=== PATIENT | female | born 1935 | race Caucasian/White ===

== ENCOUNTER 2016-12-28 09:33 | Outpatient (CLI) | payer MEDICARE, OTHER ==
[2016-12-28 17:45] LABS: #Basophils 0.1 thou/uL (0.0-0.2); #Eosinphils 0.2 thou/uL (0.0-0.7); #Lymphocytes 2.6 thou/uL (1.20-3.40); #Monocytes 0.5 thou/uL (0.11-0.59); #Neutrophils 4.8 thou/uL (1.40-6.50); %Basophils 1.1 % (0.0-1.0); %Eosinophils 2.7 % (0.0-10.0); %Lymphocytes 32.2 % (21.0-51.0); Hemoglobin 13.8 g/dL (12.0-16.0); Mean Corpuscular HGB CONC 31.2 g/dL (32.0-36.0); Mean Corpuscular Hemoglobin 29.2 pg (27.0-31.0); Mean Corpuscular Volume 93.6 fl (81.0-99.0); Mean Platelet Volume 7.5 fL (7.4-10.4); Platelet Count 211 thou/uL (130-400); RBC Distribution Width 12.3 % (11.5-14.5); Red Blood Cell (RBC) Count 4.72 mill/uL (4.20-5.40); White Blood Cell (WBC) Count 8.2 thou/uL (4.8-10.8)
[2016-12-28 19:09] LABS: Bilirubin Negative (Negative); Blood, Urine Trace (Negative); Clarity Slightly Cloudy (Clear); Glucose, Urine (Dipstick) Negative (Negative); Leukocyte Negative (Negative); Nitrite Negative (Negative); Protein, Urine (Dipstick) Trace mg/dL (Neg-Trace); Specific Gravity, Urine 1.025 (1.005-1.030); Urobilinogen 0.2 mg/dL (0.2-1.0); pH, Urine 5.5 (5.0-9.0)
[2016-12-28 19:12] LABS: RBC/HPF 0-3 HPF (0-3); Squamous Epithelial 0-3 HPF (0-3); WBC/HPF 0-3 HPF (0-3)
[2016-12-28 19:25] LABS: ALT (SGPT) 14 U/L (8-55); AST (SGOT) 23 U/L (5-34); Alkaline Phosphatase 97 U/L (40-150); Anion Gap 14 mmol/L (10-20); BUN (Urea Nitrogen) 23 mg/dL (9.8-20.1); Bilirubin, Total 0.8 mg/dL (0.2-1.2); Calc. Creatinine Clearance 0 mL/min (70-130); Calcium 9.2 mg/dL (7.8-10.44); Carbon Dioxide 28 mmol/L (23-31); Chloride 106 mmol/L (98-107); Cholesterol 207 mg/dl (< 200 Desired); Estimated GFR-MDRD 65; Globulin 2.5 g/dL (2.4-3.5); Glucose 93 mg/dL (83-110); HDL Cholesterol 52 mg/dL (>60 Neg Risk); LDL Cholesterol, Calculated 140 mg/dL; Potassium 4.8 mmol/L (3.5-5.1); Protein, Total 6.5 g/dL (6.0-8.3); Sodium 143 mmol/L (136-145); Triglycerides 74 mg/dL (Less than 150)
== END 2016-12-28 09:34 | disposition home or self-care (01) ==
LOC: NAVSJIPCSP 09:33
PROVIDERS: ATTEND Internal Medicine
DX: M19.041 Primary osteoarthritis, right hand (principal); Z79.899 Other long term (current) drug therapy
CPT/HCPCS: 36415; 80053; 80061; 81003; 81015; 84443; 85025

== ENCOUNTER 2021-01-14 12:33 | Emergency (ER) | payer MEDICARE ==
[2021-01-14] MEDS ORDERED: traMADol HCl 50 MG TAB ONE (13:12)
== END 2021-01-14 13:55 | disposition home or self-care (01) ==
LOC: NAV ERS 12:33
DX: S29.011A Strain of muscle and tendon of front wall of thorax, initial encounter (principal); E03.9 Hypothyroidism, unspecified; I10 Essential (primary) hypertension; Z79.899 Other long term (current) drug therapy; Z79.82 Long term (current) use of aspirin; W18.30XA Fall on same level, unspecified, initial encounter

== ENCOUNTER 2021-04-09 04:17 | Emergency (ER) | payer MEDICARE ==
[2021-04-09 04:40] LABS: #Basophils 0.1 thou/uL (0.0-0.2); #Eosinphils 0.3 thou/uL (0.0-0.7); #Lymphocytes 2.4 thou/uL (1.20-3.40); #Monocytes 0.9 thou/uL (0.11-0.59); #Neutrophils 5.3 thou/uL (1.40-6.50); %Basophils 1.4 % (0.0-1.0); %Eosinophils 3.1 % (0.0-10.0); %Lymphocytes 26.7 % (21.0-51.0); %Monocytes 9.6 % (0.0-10.0); %Neutrophils 59.2 % (42.0-75.0); Hemoglobin 14.1 g/dL (12.0-16.0); Manual Diff?? NO; Mean Corpuscular HGB CONC 31.6 g/dL (32.0-36.0); Mean Corpuscular Hemoglobin 29.8 pg (27.0-31.0); Mean Corpuscular Volume 94.5 fL (78.0-98.0); Mean Platelet Volume 8.1 fL (7.4-10.4); Platelet Count 229 thou/uL (130-400); RBC Distribution Width 11.5 % (11.5-14.5); Red Blood Cell (RBC) Count 4.73 mill/uL (4.20-5.40)
[2021-04-09 04:50] LABS: Sodium 140 mmol/L (136-145)
[2021-04-09 04:54] LABS: ALT (SGPT) 16 U/L (8-55); AST (SGOT) 25 U/L (5-34); Alkaline Phosphatase 99 U/L (40-110); Anion Gap 13 mmol/L (10-20); BUN (Urea Nitrogen) 16 mg/dL (9.8-20.1); Bilirubin, Total 0.5 mg/dL (0.2-1.2); Calc. Creatinine Clearance 0 mL/min (70-130); Calcium 9.5 mg/dL (7.8-10.44); Carbon Dioxide 24 mmol/L (23-31); Chloride 107 mmol/L (98-107); Globulin 2.9 g/dL (2.4-3.5); Glucose 110 mg/dL (83-110); Potassium 3.9 mmol/L (3.5-5.1); Protein, Total 6.9 g/dL (5.8-8.1)
[2021-04-09] MEDS ORDERED: Aspirin Chewable 81 MG TAB ONE (05:19)
[2021-04-09 06:03] LABS: SARS-CoV-2 NAA Rapid Test Not Detected (NotDetected)
[2021-04-09 06:10] LABS: Clarity Clear (Clear)
[2021-04-09 06:11] LABS: Bilirubin Unable to Interpret (Negative); Blood, Urine Unable to Interpret (Negative); Glucose, Urine (Dipstick) Unable to Interpret mg/dL (Negative); Ketone, Urine Unable to Interpret mg/dL (Negative); Leukocyte Unable to Interpret (Negative); Nitrite Unable to Interpret (Negative); Protein, Urine (Dipstick) Unable to Interpret mg/dL (Neg-Trace); Specific Gravity, Urine 1.015 (1.005-1.030); Urobilinogen UNABLE TO INTERPRET mg/dL (Less than 2); pH, Urine 5.5 (5.0-9.0)
[2021-04-09 06:12] LABS: Bacteria/HPF None Seen HPF (None Seen); RBC/HPF 0-3 HPF (0-3); Squamous Epithelial None Seen HPF (0-3); WBC/HPF 0-3 HPF (0-3)
== END 2021-04-09 06:24 | disposition short-term general hospital (02) ==
LOC: NAV ERS 04:17
DX: R07.89 Other chest pain (principal); Z20.822 Contact with and (suspected) exposure to COVID-19; Z86.73 Personal history of transient ischemic attack (TIA), and cerebral infarction without residual deficits; E03.9 Hypothyroidism, unspecified; I10 Essential (primary) hypertension; Z79.899 Other long term (current) drug therapy; Z79.82 Long term (current) use of aspirin
CPT/HCPCS: 71045; 80053; 81003; 81015; 84484; 85025; 93005; 94760; U0002

== ENCOUNTER 2021-05-07 11:31 | Emergency (ER) | payer MEDICARE ==
[2021-05-07] MEDS ORDERED: traMADol HCl 50 MG TAB ONE (12:45)
== END 2021-05-07 13:05 | disposition home or self-care (01) ==
LOC: NAV ERS 11:31
DX: S29.012A Strain of muscle and tendon of back wall of thorax, initial encounter (principal); I10 Essential (primary) hypertension; E03.9 Hypothyroidism, unspecified; E78.5 Hyperlipidemia, unspecified; E78.00 Pure hypercholesterolemia, unspecified; Z79.82 Long term (current) use of aspirin; Z79.899 Other long term (current) drug therapy; X58.XXXA Exposure to other specified factors, initial encounter

== ENCOUNTER 2021-10-27 10:15 | Outpatient (CLI) | payer MEDICARE ==
[2021-10-27 11:14] LABS: ALT (SGPT) 18 U/L (8-55); AST (SGOT) 23 U/L (5-34); Albumin 3.8 g/dL (3.4-4.8); Alkaline Phosphatase 95 U/L (40-110); Anion Gap 15 mmol/L (10-20); BUN (Urea Nitrogen) 10 mg/dL (9.8-20.1); Bilirubin, Total 0.7 mg/dL (0.2-1.2); Calc. Creatinine Clearance 0 mL/min (70-130); Calcium 9.5 mg/dL (7.8-10.44); Carbon Dioxide 27 mmol/L (23-31); Chloride 107 mmol/L (98-107); Globulin 2.4 g/dL (2.4-3.5); Glucose 90 mg/dL (83-110); Potassium 4.3 mmol/L (3.5-5.1); Protein, Total 6.2 g/dL (5.8-8.1); Sodium 145 mmol/L (136-145)
[2021-10-27 11:38] LABS: #Basophils 0.1 thou/uL (0.0-0.2); #Eosinphils 0.1 thou/uL (0.0-0.7); #Lymphocytes 1.3 thou/uL (1.20-3.40); #Monocytes 0.4 thou/uL (0.11-0.59); %Basophils 1.1 % (0.0-1.0); %Eosinophils 2.1 % (0.0-10.0); %Monocytes 6.2 % (0.0-10.0); %Neutrophils 71.5 % (42.0-75.0); Hemoglobin 12.7 g/dL (12.0-16.0); Mean Corpuscular HGB CONC 29.4 g/dL (32.0-36.0); Mean Corpuscular Hemoglobin 29.5 pg (27.0-31.0); Mean Platelet Volume 7.5 fL (7.4-10.4); Platelet Count 231 thou/uL (130-400); RBC Distribution Width 14.3 % (11.5-14.5)
[2021-10-27 13:04] LABS: Follow-up Chemistry Comp? YES; Follow-up Hematology Comp? YES; Follow-up Result - Chemistry REPORT FAXED; Follow-up Result - Hematology REPORT FAXED
[2021-10-27 18:37] LABS: Cardiac Risk 3.1 (Less than 4.5); Cholesterol 141 mg/dl (< 200 Desired); HDL Cholesterol 46 mg/dL (>60 Neg Risk); LDL Cholesterol, Calculated 83 mg/dL; Triglycerides 61 mg/dL (Less than 150)
== END 2021-10-27 10:16 | disposition home or self-care (01) ==
LOC: NAV LABSP 10:15
PROVIDERS: ATTEND Family Medicine
DX: E03.9 Hypothyroidism, unspecified (principal); E78.2 Mixed hyperlipidemia; I10 Essential (primary) hypertension; Z79.899 Other long term (current) drug therapy
CPT/HCPCS: 80053; 80061; 84443; 85025

== ENCOUNTER 2023-04-23 20:17 | Emergency (ER) | payer MEDICARE ==
[~2023-04-23 20:17] MED LIST: Iopamidol 370 76% 100 ML VIAL ONE
[2023-04-23] MEDS ORDERED: Ondansetron PF 4 MG/2 ML Vial ONE (20:49)
[2023-04-23] MEDS ORDERED: Famotidine/PF 20 mg/2ml Vial ONE (20:50)
[2023-04-23 20:56] LABS: #Basophils 0.1 thou/uL (0.0-0.2); #Eosinphils 0.2 thou/uL (0.0-0.7); #Lymphocytes 2.3 thou/uL (1.20-3.40); #Monocytes 0.8 thou/uL (0.11-0.59); #Neutrophils 4.5 thou/uL (1.40-6.50); %Basophils 1.8 % (0.0-1.0); %Eosinophils 2.6 % (0.0-10.0); %Lymphocytes 29.4 % (21.0-51.0); %Monocytes 9.6 % (0.0-10.0); %Neutrophils 56.6 % (42.0-75.0); Hematocrit 41.6 % (36.0-47.0); Hemoglobin 13.6 g/dL (12.0-16.0); Mean Corpuscular HGB CONC 32.8 g/dL (32.0-36.0); Mean Corpuscular Hemoglobin 32.5 pg (27.0-31.0); Mean Corpuscular Volume 99.2 fl (78.0-98.0); Mean Platelet Volume 7.5 fL (7.4-10.4); Platelet Count 248 10x3/uL (130-400); Red Blood Cell (RBC) Count 4.19 mill/uL (4.20-5.40); White Blood Cell (WBC) Count 7.9 10x3/uL (4.8-10.8)
[2023-04-23 21:11] LABS: ALT (SGPT) 13 U/L (8-55); AST (SGOT) 32 U/L (5-34); Albumin 4.3 g/dL (3.4-4.8); Alkaline Phosphatase 82 U/L (40-110); Anion Gap 17 mmol/L (10-20); BUN (Urea Nitrogen) 11 mg/dL (9.8-20.1); Bilirubin, Total 0.3 mg/dL (0.2-1.2); Calc. Creatinine Clearance 0 mL/min (70-130); Calcium 9.7 mg/dL (7.8-10.44); Carbon Dioxide 27 mmol/L (23-31); Chloride 102 mmol/L (98-107); Estimated GFR 65; Globulin 2.8 g/dL (2.4-3.5); Glucose 147 mg/dL (83-110); Lipase 48 U/L (8-78); Potassium 3.6 mmol/L (3.5-5.1); Protein, Total 7.1 g/dL (5.8-8.1); Sodium 142 mmol/L (136-145)
[2023-04-23 21:14] LABS: Troponin I 0.014 ng/mL (< 0.028)
[2023-04-23] MEDS ORDERED: Mag-Al Plus 1200 MG/1200 MG/120 MG/30 ML UDCUP ONE (21:40)
[2023-04-23] MEDS ORDERED: Lidocaine Viscous Sol 2% 15 ml UD Cup ONE ×2 (21:40→22:53)
[2023-04-23] MEDS ORDERED: Sodium Chloride 0.9% 1,000 ML ONE (22:39)
== END 2023-04-24 00:03 | disposition short-term general hospital (02) ==
LOC: NAV ERS 20:17
DX: K56.609 Unspecified intestinal obstruction, unspecified as to partial versus complete obstruction (principal); E03.9 Hypothyroidism, unspecified; E78.00 Pure hypercholesterolemia, unspecified; Z79.82 Long term (current) use of aspirin; Z79.899 Other long term (current) drug therapy
CPT/HCPCS: 74177; 80053; 83605; 83690; 84484; 85025; 93005; 96374; 96375; J2405; J7050; Q9967; S0028

== ENCOUNTER 2023-09-04 15:45 | Inpatient (IN) | payer MEDICARE ==
[2023-09-04] MEDS ORDERED: Ondansetron ODT 4 MG TAB PO PRN (16:13)
[2023-09-04] MEDS ORDERED: Bisacodyl 5 MG TAB PO PRN (16:13)
[2023-09-04] MEDS: Diclofenac 1% 100 GM Topical GEL TP SCH (21:12)
[2023-09-04] MEDS: Lisinopril 20 MG TAB PO SCH (21:12)
[2023-09-04] MEDS: Famotidine 20 MG TAB PO SCH (21:12)
[2023-09-04] MEDS: Atorvastatin Calcium 10 MG TAB PO SCH (21:12)
[2023-09-05 03:10] VITALS: BMI 16.8
[2023-09-05 05:50] LABS: #Basophils 0.1 thou/uL (0.0-0.2); #Eosinphils 0.2 thou/uL (0.0-0.7); #Lymphocytes 1.9 thou/uL (1.20-3.40); #Monocytes 0.9 thou/uL (0.11-0.59); %Basophils 0.9 % (0.0-1.0); %Eosinophils 1.9 % (0.0-10.0); %Lymphocytes 20.5 % (21.0-51.0); %Monocytes 9.9 % (0.0-10.0); %Neutrophils 66.8 % (42.0-75.0); Hematocrit 39.8 % (36.0-47.0); Hemoglobin 12.7 g/dL (12.0-16.0); Mean Corpuscular HGB CONC 31.8 g/dL (32.0-36.0); Mean Corpuscular Hemoglobin 31.4 pg (27.0-31.0); Mean Corpuscular Volume 98.6 fl (78.0-98.0); Mean Platelet Volume 7.4 fL (7.4-10.4); Platelet Count 165 10x3/uL (130-400); RBC Distribution Width 11.2 % (11.5-14.5); Red Blood Cell (RBC) Count 4.03 mill/uL (4.20-5.40)
[2023-09-05] MEDS: Levothyroxine Sodium 50 MCG TAB PO SCH (05:55)
[2023-09-05 06:03] LABS: ALT (SGPT) 13 U/L (8-55); AST (SGOT) 19 U/L (5-34); Albumin 3.9 g/dL (3.4-4.8); Alkaline Phosphatase 76 U/L (40-110); Anion Gap 13 mmol/L (10-20); BUN (Urea Nitrogen) 21 mg/dL (9.8-20.1); Bilirubin, Total 0.5 mg/dL (0.2-1.2); Calc. Creatinine Clearance 30 mL/min (70-130); Calcium 9.4 mg/dL (7.8-10.44); Carbon Dioxide 25 mmol/L (23-31); Chloride 105 mmol/L (98-107); Estimated GFR 71; Globulin 2.3 g/dL (2.4-3.5); Glucose 103 mg/dL (83-110); Potassium 4.1 mmol/L (3.5-5.1); Protein, Total 6.2 g/dL (5.8-8.1); Sodium 139 mmol/L (136-145)
[2023-09-05] MEDS: Aspirin 325 MG TAB PO SCH (09:31)
[2023-09-05] MEDS: Multivitamin W/ Minerals 1 TAB PO SCH (09:32)
[2023-09-05] MEDS: Fluticasone Propionate Nasal Spray 16 gm Bottle NASAL SCH (09:32)
[2023-09-05] MEDS: Enoxaparin 30 MG (0.3 mL) SYRINGE SC SCH (09:33)
[2023-09-05] MEDS: Amlodipine 10 MG TAB PO SCH (09:35)
[2023-09-05] MEDS: GLUCOSAMINE HCL 1500 MG PO SCH (09:35)
[2023-09-05] MEDS: Polyethylene Glycol 3350 17 GM Packet PO SCH (09:36)
[2023-09-05] MEDS: Famotidine 20 MG TAB PO SCH (20:38)
[2023-09-05] MEDS: Senokot S 8.6-50 MG TAB PO PRN (20:38)
[2023-09-06] MEDS: traMADol HCl 50 MG TAB PO PRN (00:43)
[2023-09-06] MEDS ORDERED: Benzocaine/Menthol 1 LOZ LOZ PO PRN (10:12)
[2023-09-06] MEDS ORDERED: Polyethylene Glycol 3350 17 GM Packet PO PRN (11:59)
[2023-09-07] MEDS: Amlodipine 10 MG TAB PO SCH (09:28)
[2023-09-07] MEDS: Calcium Carbonate 600 MG + Vit D TAB PO SCH (09:28)
[2023-09-07] MEDS: Acetaminophen 325 MG TAB PO PRN (20:20)
[2023-09-07] MEDS: Lisinopril 20 MG TAB PO SCH (20:20)
[2023-09-11 06:01] LABS: #Basophils 0.1 thou/uL (0.0-0.2); #Eosinphils 0.2 thou/uL (0.0-0.7); #Lymphocytes 1.9 thou/uL (1.20-3.40); #Monocytes 0.6 thou/uL (0.11-0.59); #Neutrophils 3.3 thou/uL (1.40-6.50); %Basophils 2.4 % (0.0-1.0); %Eosinophils 3.2 % (0.0-10.0); %Lymphocytes 30.6 % (21.0-51.0); %Monocytes 10.4 % (0.0-10.0); %Neutrophils 53.5 % (42.0-75.0); Hematocrit 38.1 % (36.0-47.0); Hemoglobin 11.9 g/dL (12.0-16.0); Mean Corpuscular HGB CONC 31.3 g/dL (32.0-36.0); Mean Corpuscular Volume 99.2 fl (78.0-98.0); Mean Platelet Volume 7.4 fL (7.4-10.4); Platelet Count 181 10x3/uL (130-400); RBC Distribution Width 10.9 % (11.5-14.5); Red Blood Cell (RBC) Count 3.84 mill/uL (4.20-5.40); White Blood Cell (WBC) Count 6.1 10x3/uL (4.8-10.8)
[2023-09-11 06:12] LABS: Anion Gap 14 mmol/L (10-20); BUN (Urea Nitrogen) 22 mg/dL (9.8-20.1); Calc. Creatinine Clearance 33 mL/min (70-130); Calcium 9.4 mg/dL (7.8-10.44); Carbon Dioxide 23 mmol/L (23-31); Chloride 107 mmol/L (98-107); Estimated GFR 76; Glucose 87 mg/dL (83-110); Potassium 4.2 mmol/L (3.5-5.1); Sodium 140 mmol/L (136-145)
[2023-09-11] MEDS: Polyethylene Glycol 3350 17 GM Packet PO SCH (20:10)
[2023-09-12 11:05] VITALS: BMI 17.5
[2023-09-14 07:42] VITALS: BP 133/65; TEMP 97.7
== END 2023-09-14 15:38 | disposition home or self-care (01) | DRG 948 ==
LOC: NAV ACUTE 20:19
PROVIDERS: ADMIT Student in an Organized Health Care Education/Training Program; ATTEND Student in an Organized Health Care Education/Training Program
DX: R53.1 Weakness (principal); I69.851 Hemiplegia and hemiparesis following other cerebrovascular disease affecting right dominant side; M25.561 Pain in right knee; I10 Essential (primary) hypertension; E03.9 Hypothyroidism, unspecified; E78.5 Hyperlipidemia, unspecified; Z90.710 Acquired absence of both cervix and uterus; Z90.49 Acquired absence of other specified parts of digestive tract; Z98.890 Other specified postprocedural states; W18.30XA Fall on same level, unspecified, initial encounter; K59.00 Constipation, unspecified; Z66 Do not resuscitate; Z79.82 Long term (current) use of aspirin; Z79.899 Other long term (current) drug therapy
CPT/HCPCS: 36415; 80048; 80053; 84443; 85025; J1650

== ENCOUNTER 2023-10-04 23:25 | Emergency (ER) | payer MEDICARE ==
[2023-10-04 23:49] LABS: #Basophils 0.1 thou/uL (0.0-0.2); #Eosinphils 0.2 thou/uL (0.0-0.7); #Lymphocytes 2.1 thou/uL (1.20-3.40); #Monocytes 0.8 thou/uL (0.11-0.59); #Neutrophils 8.7 thou/uL (1.40-6.50); %Eosinophils 1.4 % (0.0-10.0); %Lymphocytes 17.8 % (21.0-51.0); %Monocytes 6.9 % (0.0-10.0); %Neutrophils 72.9 % (42.0-75.0); Hematocrit 44.8 % (36.0-47.0); Hemoglobin 13.9 g/dL (12.0-16.0); Mean Corpuscular HGB CONC 30.9 g/dL (32.0-36.0); Mean Corpuscular Hemoglobin 30.6 pg (27.0-31.0); Mean Corpuscular Volume 98.8 fl (78.0-98.0); Mean Platelet Volume 7.5 fL (7.4-10.4); Platelet Count 206 10x3/uL (130-400); Red Blood Cell (RBC) Count 4.54 mill/uL (4.20-5.40); White Blood Cell (WBC) Count 11.9 10x3/uL (4.8-10.8)
[2023-10-04] MEDS ORDERED: Ondansetron PF 4 MG/2 ML Vial ONE (23:50)
[2023-10-04] MEDS ORDERED: Ketorolac Tromethamine 30 MG (1 mL) VIAL ONE (23:50)
[2023-10-05 00:04] LABS: ALT (SGPT) 18 U/L (8-55); AST (SGOT) 30 U/L (5-34); Albumin 4.7 g/dL (3.4-4.8); Alkaline Phosphatase 116 U/L (40-110); Anion Gap 21 mmol/L (10-20); BUN (Urea Nitrogen) 19 mg/dL (9.8-20.1); Bilirubin, Direct 0.2 mg/dL (0.1-0.3); Bilirubin, Total 0.5 mg/dL (0.2-1.2); Calc. Creatinine Clearance 0 mL/min (70-130); Calcium 9.8 mg/dL (7.8-10.44); Carbon Dioxide 20 mmol/L (23-31); Chloride 104 mmol/L (98-107); Estimated GFR 68; Globulin 3.1 g/dL (2.4-3.5); Glucose 108 mg/dL (83-110); Lipase 284 U/L (8-78); Potassium 4.5 mmol/L (3.5-5.1); Protein, Total 7.8 g/dL (5.8-8.1); Sodium 140 mmol/L (136-145)
[2023-10-05 00:28] LABS: Bilirubin Negative (Negative); Blood, Urine Trace (Negative); Clarity Clear (Clear); Glucose, Urine (Dipstick) Negative (Negative); Ketone, Urine Negative (Negative); Leukocyte Negative (Negative); Nitrite Negative (Negative); Protein, Urine (Dipstick) Negative (Neg-Trace); RBC/HPF 0-3 HPF (0-3); Urobilinogen 0.2 mg/dL (Less than 2)
[2023-10-05] MEDS ORDERED: Morphine 4 MG/ML VIAL ONE (00:50)
[2023-10-05] MEDS ORDERED: Pantoprazole 40 MG VIAL ONE (01:28)
[2023-10-05] MEDS ORDERED: Bisacodyl 10 MG SUPP ONE (01:56)
[2023-10-05] MEDS ORDERED: Mag-Al Plus 1200/1200/120 MG (30 mL) UDCUP ONE (01:56)
[2023-10-05] MEDS ORDERED: Iopamidol 370 76% 100 ML VIAL ONE (09:00)
== END 2023-10-05 02:20 | disposition home or self-care (01) ==
LOC: NAV ERS 23:25
DX: K59.00 Constipation, unspecified (principal); R14.0 Abdominal distension (gaseous); I10 Essential (primary) hypertension; E78.00 Pure hypercholesterolemia, unspecified; E03.9 Hypothyroidism, unspecified; Z86.73 Personal history of transient ischemic attack (TIA), and cerebral infarction without residual deficits; Z79.899 Other long term (current) drug therapy; Z79.82 Long term (current) use of aspirin
CPT/HCPCS: 74177; 80053; 81001; 82248; 83605; 83690; 85025; 93005; 96374; 96375; C9113; J1885; J2270; J2405; Q9967